=== PATIENT | male | born 1930 | race Caucasian/White ===

== ENCOUNTER → 2018-04-07 | Outpatient (CLI) | payer OTHER ==
[~2018-04-07] MED LIST: ALLO300 PO; ASPI325 PO; ASPI81EC PO; BECL40OI INH; FOLI1 PO; LOSA50 PO; LOVA20 PO; Naproxen250 MG PO; PRED20 PO; ST. JOSEPH ASPI81 MG PO; TELM40 PO; XARELTO PO
[2018-04-07 12:37] LABS: BASOPHILS ABSOLUTE AUTO 0.06 K/mm3 (0.00-0.23); BASOPHILS PERCENT AUTO 2 % (0-2); EOSINOPHILS ABSOLUTE AUTO 0.19 K/mm3 (0.00-0.68); EOSINOPHILS PERCENT AUTO 7 % (0-6); Hematocrit 33.7 % (37.0-53.0); Hemoglobin 11.2 g/dL (13.5-17.5); IMMATURE GRAN PERCENT AUTO 0 % (0-1); LYMPHOCYTES ABSOLUTE AUTO 1.05 K/mm3 (0.84-5.20); LYMPHOCYTES PERCENT AUTO 37 % (21-46); MONOCYTES ABSOLUTE AUTO 0.29 K/mm3 (0.16-1.47); MONOCYTES PERCENT AUTO 10 % (4-13); Mean Corpuscular HGB 31.5 pg (26.0-34.0); Mean Corpuscular HGB Conc 33.2 g/dL (31.5-36.5); Mean Corpuscular Volume 95 fL (80-100); Mean Platelet Volume 10.6 fL (9.1-12.4); NEUTROPHILS ABSOLUTE AUTO 1.23 K/mm3 (1.96-9.15); NEUTROPHILS PERCENT AUTO 44 % (41-73); Platelet Count 165 K/mm3 (150-400); RDW Coefficient Variation 14.6 % (11.7-14.2); RDW Standard Deviation 50.4 fL (35.1-46.3); Red Blood Cell Count 3.56 M/mm3 (4.30-5.90); White Blood Cell Count 2.82 K/mm3 (4.00-11.30)
[2018-04-07 12:51] LABS: Anion Gap 10 mmol/L (6-16); Blood Urea Nitrogen 24 mg/dL (8-24); Bun/Creatinine Ratio 19.2 (12.0-20.0); CO2, Blood 24 mmol/L (21-32); Calcium, Blood 8.8 mg/dL (8.5-10.1); Chloride, Blood 103 mmol/L (98-108); Creatinine, Blood 1.25 mg/dL (0.60-1.20); Glomerular Filtration Rate 55 (60-); Glucose, Blood 131 mg/dL (70-99); Potassium, Blood 4.3 mmol/L (3.5-5.5); Sodium, Blood 137 mmol/L (136-145); Thyroid Stimulating Hormone 2.627 uIU/mL (0.360-4.800)
[2018-04-07 12:53] LABS: Troponin I <0.017 ng/mL (0.000-0.040)
== END | disposition home or self-care (01) ==
LOC: LAB SHORT 12:28 → LAB EV 12:28
PROVIDERS: Physician Assistant Surgical
DX: R07.9 Chest pain, unspecified (principal); R53.83 Other fatigue
CPT/HCPCS: 80048; 84443; 84484; 85025

== ENCOUNTER → 2018-09-05 | Outpatient (CLI) | payer OTHER ==
[2018-09-06 13:49] LABS: Stool Occult Bld Immuno 1 Negative (NEGATIVE)
== END | disposition home or self-care (01) ==
LOC: LAB EV 11:45
PROVIDERS: Physician Assistant Surgical
DX: K92.1 Melena (principal)
CPT/HCPCS: 82274

== ENCOUNTER → 2019-07-31 | Outpatient (CLI) | payer OTHER ==
[2019-07-31 11:37] LABS: BASOPHILS ABSOLUTE AUTO 0.06 K/mm3 (0.00-0.23); BASOPHILS PERCENT AUTO 4 % (0-2); EOSINOPHILS ABSOLUTE AUTO 0.13 K/mm3 (0.00-0.68); EOSINOPHILS PERCENT AUTO 8 % (0-6); Hematocrit 31.4 % (37.0-53.0); Hemoglobin 10.4 g/dL (13.5-17.5); IMMATURE GRAN PERCENT AUTO 0 % (0-1); LYMPHOCYTES ABSOLUTE AUTO 0.64 K/mm3 (0.84-5.20); LYMPHOCYTES PERCENT AUTO 40 % (21-46); MONOCYTES ABSOLUTE AUTO 0.16 K/mm3 (0.16-1.47); MONOCYTES PERCENT AUTO 10 % (4-13); Mean Corpuscular HGB 31.7 pg (26.0-34.0); Mean Corpuscular HGB Conc 33.1 g/dL (31.5-36.5); Mean Corpuscular Volume 96 fL (80-100); Mean Platelet Volume 10.8 fL (9.1-12.4); NEUTROPHILS ABSOLUTE AUTO 0.63 K/mm3 (1.96-9.15); NEUTROPHILS PERCENT AUTO 39 % (41-73); Platelet Count 137 K/mm3 (150-400); RDW Coefficient Variation 13.6 % (11.7-14.2); RDW Standard Deviation 48.1 fL (35.1-46.3); Red Blood Cell Count 3.28 M/mm3 (4.30-5.90); White Blood Cell Count 1.62 K/mm3 (4.00-11.30)
[2019-07-31 11:52] LABS: Albumin, Blood 3.6 g/dL (3.4-5.0); Albumin/Globulin Ratio 1.1 (0.8-1.8); Bilirubin, Total 0.3 mg/dL (0.1-1.0); Calcium, Blood 8.4 mg/dL (8.5-10.1); Creatinine, Blood 1.2 mg/dL (0.60-1.20); Globulin, Blood 3.2 g/dL (2.2-4.0); Potassium, Blood 4.3 mmol/L (3.5-5.5); Total Protein, Blood 6.8 g/dL (6.4-8.2)
== END | disposition home or self-care (01) ==
LOC: LAB SHORT 11:32 → LAB EV 11:32
PROVIDERS: General Practice
DX: R10.13 Epigastric pain (principal)
CPT/HCPCS: 80053; 83690; 85025

== ENCOUNTER 2020-10-12 06:17 | Inpatient (IN) | payer OTHER ==
[~2020-10-12] VITALS: Ht 170.2 cm; Wt 61.0 kg
[~2020-10-12 06:17] MED LIST changes: -XARELTO PO; +XARELTO20 MG PO
[2020-10-12 06:31] LABS: BASOPHILS ABSOLUTE AUTO 0.06 K/mm3 (0.00-0.23); BASOPHILS PERCENT AUTO 1 % (0-2); EOSINOPHILS ABSOLUTE AUTO 0.31 K/mm3 (0.00-0.68); EOSINOPHILS PERCENT AUTO 8 % (0-6); Hematocrit 20.9 % (37.0-53.0); Hemoglobin 6.2 g/dL (13.5-17.5); IMMATURE GRAN PERCENT AUTO 0 % (0-1); LYMPHOCYTES ABSOLUTE AUTO 2.32 K/mm3 (0.84-5.20); LYMPHOCYTES PERCENT AUTO 56 % (21-46); MONOCYTES ABSOLUTE AUTO 0.46 K/mm3 (0.16-1.47); MONOCYTES PERCENT AUTO 11 % (4-13); Mean Corpuscular HGB 29.4 pg (26.0-34.0); Mean Corpuscular HGB Conc 29.7 g/dL (31.5-36.5); Mean Corpuscular Volume 99 fL (80-100); Mean Platelet Volume 11.4 fL (9.1-12.4); NEUTROPHILS PERCENT AUTO 24 % (41-73); Platelet Count 149 K/mm3 (150-400); RDW Coefficient Variation 17.2 % (11.7-14.2); RDW Standard Deviation 61.5 fL (35.1-46.3); Red Blood Cell Count 2.11 M/mm3 (4.30-5.90); White Blood Cell Count 4.15 K/mm3 (4.00-11.30)
[2020-10-12 06:51] LABS: International Normalized Ratio 1.11; Prothrombin Time Results 11.8 Sec (9.7-11.5)
[2020-10-12 06:52] LABS: Albumin, Blood 2.8 g/dL (3.4-5.0); Albumin/Globulin Ratio 1.1 (0.8-1.8); Bilirubin, Total 0.2 mg/dL (0.1-1.0); Calcium, Blood 8.1 mg/dL (8.5-10.1); Creatinine, Blood 1.5 mg/dL (0.60-1.20); Globulin, Blood 2.5 g/dL (2.2-4.0); Potassium, Blood 4.4 mmol/L (3.5-5.5); Total Protein, Blood 5.3 g/dL (6.4-8.2); Troponin I 0.02 ng/mL (0.000-0.040)
[2020-10-12] MEDS ORDERED: LOSA50 PO (07:30)
[2020-10-12] MEDS ORDERED: FOLI1 PO (07:30)
[2020-10-12] MEDS ORDERED: ALLO300 PO (07:30)
--- NOTE | 2020-10-12 15:27 | NUR ---
pt arrived to pcu via gurney from ED. a/ox3, pleasant and cooperative with care, follows commands well, denies pain or complaints, lungs are clear t/o, resp even and unlabored, no cough noted, is on r/a, hrirr, tele in place running afib per monitor, see strip, pronounced murmur noted, no edema noted, ppp+1, cap refill <3sec, vs stable, afebrile, iv site is clear and patent, btx4, abd flat soft nontender, voids without diff, skin c/w/d, maew, daniel, call light in reach.
--- NOTE | 2020-10-12 17:18 | NUR ---
pt is concerned about being incont durring the night, brought him briefs, after talking, offered him a condom cath he wanted that placed, this was done, call light in reach.
--- NOTE | 2020-10-12 18:01 | NUR ---
PT IS DOING WELL, NO COMPLAINTS AT THIS TIME, STATES HE FEELS OK, IS VERY APPREICIATIVE OF HAVING THE CONDOM CATH ON, UNDERSTANDS HE WILL HAVE AN EGD IN THE AM, AND NPO AFTER MIDNIGHT. CALL LIGHT IN REACH.
[2020-10-13 05:28] LABS: BASOPHILS ABSOLUTE AUTO 0.09 K/mm3 (0.00-0.23); BASOPHILS PERCENT AUTO 3 % (0-2); EOSINOPHILS ABSOLUTE AUTO 0.19 K/mm3 (0.00-0.68); EOSINOPHILS PERCENT AUTO 7 % (0-6); Hematocrit 27.4 % (37.0-53.0); Hemoglobin 8.7 g/dL (13.5-17.5); IMMATURE GRAN PERCENT AUTO 0 % (0-1); LYMPHOCYTES ABSOLUTE AUTO 1.24 K/mm3 (0.84-5.20); LYMPHOCYTES PERCENT AUTO 47 % (21-46); MONOCYTES PERCENT AUTO 8 % (4-13); Mean Corpuscular HGB 29.7 pg (26.0-34.0); Mean Corpuscular HGB Conc 31.8 g/dL (31.5-36.5); Mean Corpuscular Volume 94 fL (80-100); Mean Platelet Volume 11.7 fL (9.1-12.4); NEUTROPHILS ABSOLUTE AUTO 0.91 K/mm3 (1.96-9.15); NEUTROPHILS PERCENT AUTO 35 % (41-73); Platelet Count 127 K/mm3 (150-400); RDW Coefficient Variation 16.8 % (11.7-14.2); Red Blood Cell Count 2.93 M/mm3 (4.30-5.90); White Blood Cell Count 2.63 K/mm3 (4.00-11.30)
[2020-10-13 06:03] LABS: Alanine Aminotransfer (ALT/SGP 11 U/L (12-78); Albumin, Blood 2.8 g/dL (3.4-5.0); Albumin/Globulin Ratio 1.2 (0.8-1.8); Alk Phos 57 U/L (50-136); Anion Gap 7 mmol/L (6-16); Aspartate Aminotrans (AST/SGOT 22 U/L (12-37); Bilirubin, Total 0.6 mg/dL (0.1-1.0); Blood Urea Nitrogen 54 mg/dL (8-24); Bun/Creatinine Ratio 50.5 (12.0-20.0); CO2, Blood 20 mmol/L (21-32); Calcium, Blood 8.1 mg/dL (8.5-10.1); Chloride, Blood 119 mmol/L (98-108); Creatinine, Blood 1.07 mg/dL (0.60-1.20); Globulin, Blood 2.4 g/dL (2.2-4.0); Glomerular Filtration Rate >60 (60-); Glucose, Blood 78 mg/dL (70-99); Potassium, Blood 4.1 mmol/L (3.5-5.5); Sodium, Blood 146 mmol/L (136-145); Total Protein, Blood 5.2 g/dL (6.4-8.2)
--- NOTE | 2020-10-13 08:01 | NUR ---
SHIFT SUMMARY PT HAD NO COMPLAINTS OF PAIN OR DISCOMFORT T/O THE NIGHT. BP STABLE 110-100 SYSTOLIC WITH HR IN THE 60'S. PT ON ROOM AIR WITH SATS IN THE HIGH 90'S. TELE MONITOR SHOWED AFIB MOST OF THE NIGHT, CONVERTING TO AFLUTTER AROUND 0300 WITH AN AUDIBLE MURMUR. PT STATED NO EPISODES OF LIGHTHEADEDNESS OR SYNCOPY. PT HAD A CONDOM CATH INPLACE T/O SHIFT. NPO SINCE MIDNIGHT AND ONLY CLEARS BEFORE THAT. PT EAGER FOR PROCEDURE, WILL CONTINUE TO MONITOR UNTIL SHIFT CHANGE.
--- NOTE | 2020-10-13 11:22 | NUR ---
History, Chart, Medications and Allergies reviewed before start of procedure. Patient confirms NPO status and agrees with scheduled surgery. Dr. Young at bedside consulting.
--- NOTE | 2020-10-13 12:02 | NUR ---
DR TAI AT BEDSIDE DISCUSSING RESULTS OF EGD.
--- NOTE | 2020-10-13 12:21 | NUR ---
10/13/20 1221 Kimmy Puentes APC SET AT 20WATTS.
--- NOTE | 2020-10-13 17:45 | NUR ---
SHIFT SUMMARY PT A&Ox3; CALM AND COOPERATIVE WITH CARE. PT RESTING IN BED DURING SHIFT. UP SBA. PT DENIES PAIN, CHEST PAIN, NAUSEA, SOB AND DIZZINESS. PT NPO THIS AM FOR EGD; TO CARDIAC DIET PER ORDERS. CONDOM CATH IN PLACE. VSS. NO OTHER ACUTE CHANGES NOTED DURING SHIFT. WILL CONTINUE TO MONITOR UNTIL REPORT GIVEN TO ONCOMING RN.
--- NOTE | 2020-10-14 05:49 | NUR ---
SHIFT SUMMARY PT WAS QUIET AND PLEASENT T/O THE NIGHT, STATED BEING COMFORTABLE AND WAS ABLE TO SLEEP MOST OF THE NIGHT, DENIED ANY PAIN OR SOB. HAD OCCASIONAL PRODUCTIVE COUGH WITH SMALL AMOUNT OF CLEAR/YELLOW SPUTUM. ON ROOM AIR WITH O2 SATS IN THE HIGH 90'S. BP STABLE LOW 100'S SYSTOLIC. HR 60-80'S WITH TELE SHOWING SINUS RHYTHM. PT HAD QUIET, UNEVENTFUL SHIFT. PT AWAKE WATCHING TV, WILL CONTINUE TO MONITOR UNTIL SHIFT CHANGE.
[2020-10-14 12:34] LABS: BASOPHILS ABSOLUTE AUTO 0.06 K/mm3 (0.00-0.23); BASOPHILS PERCENT AUTO 3 % (0-2); EOSINOPHILS ABSOLUTE AUTO 0.23 K/mm3 (0.00-0.68); EOSINOPHILS PERCENT AUTO 12 % (0-6); Hematocrit 25.9 % (37.0-53.0); Hemoglobin 8.3 g/dL (13.5-17.5); IMMATURE GRAN PERCENT AUTO 0 % (0-1); LYMPHOCYTES ABSOLUTE AUTO 0.71 K/mm3 (0.84-5.20); LYMPHOCYTES PERCENT AUTO 36 % (21-46); MONOCYTES ABSOLUTE AUTO 0.17 K/mm3 (0.16-1.47); MONOCYTES PERCENT AUTO 9 % (4-13); Mean Corpuscular HGB 30.3 pg (26.0-34.0); Mean Corpuscular Volume 95 fL (80-100); Mean Platelet Volume 11.4 fL (9.1-12.4); NEUTROPHILS ABSOLUTE AUTO 0.79 K/mm3 (1.96-9.15); NEUTROPHILS PERCENT AUTO 40 % (41-73); Platelet Count 120 K/mm3 (150-400); RDW Coefficient Variation 16.8 % (11.7-14.2); RDW Standard Deviation 57.3 fL (35.1-46.3); Red Blood Cell Count 2.74 M/mm3 (4.30-5.90); White Blood Cell Count 1.96 K/mm3 (4.00-11.30)
[2020-10-14 12:56] LABS: Alanine Aminotransfer (ALT/SGP 12 U/L (12-78); Albumin, Blood 2.8 g/dL (3.4-5.0); Albumin/Globulin Ratio 1.1 (0.8-1.8); Alk Phos 61 U/L (50-136); Anion Gap 5 mmol/L (6-16); Aspartate Aminotrans (AST/SGOT 17 U/L (12-37); Bilirubin, Total 0.4 mg/dL (0.1-1.0); Blood Urea Nitrogen 27 mg/dL (8-24); CO2, Blood 22 mmol/L (21-32); Calcium, Blood 7.9 mg/dL (8.5-10.1); Chloride, Blood 118 mmol/L (98-108); Globulin, Blood 2.5 g/dL (2.2-4.0); Glomerular Filtration Rate >60 (60-); Glucose, Blood 114 mg/dL (70-99); Sodium, Blood 145 mmol/L (136-145); Total Protein, Blood 5.3 g/dL (6.4-8.2)
[2020-10-14] MEDS ORDERED: PANT40 PO (15:17)
[2020-10-14] MEDS ORDERED: FERSU300 PO (15:20)
--- NOTE | 2020-10-14 19:26 | NUR ---
DISCHARGE SUMMARY PT A&Ox3; CALM AND COOPERATIVE WITH CARE. PT RESTING IN BED DURING SHIFT. UP TO BATHROOM SBA. PT DENIES PAIN, CHEST PAIN, SOB, NASUEA AND DIZZINESS. PT STATES LAST BM DARK "BUT NOT DARK THE LAST ONE; DR BRUCE NOTIFIED. PER TELE PT SINUS RHYTHM WITH ECTOPY AND OCCASIONAL SINUS PAUSES, PT ASSYMPTOMATIC; VSS; NOTIIFED DR BRUCE; NO NEW ORDERS. VSS. NO OTHER ACUTE CHANGES NOTED DURING SHIFT. PRESCRIPTIONS FAXED TO [facility] IN [place] PER PT REQUEST. PT AND DAUGHTER EDUCATED ON DISCHARGE INSTRUCTIONS, FOLLOW UP APPOINTMENTS WITH EFM, MEDICATIONS AND TO TALK SHOW HOST PRESCRIPTIONS TOMORROW FROM [facility]. PT LEFT ROOM VIA WHEELCHAIR AT 1625.
== END 2020-10-14 16:25 | disposition home or self-care (01) | DRG 378 ==
LOC: ER 06:17 → ERHOLD 08:44 → PCU 14:40
PROVIDERS: Emergency Medicine; Student in an Organized Health Care Education/Training Program; ADMIT Internal Medicine
PROC: 0W3P8ZZ Control Bleeding in Gastrointestinal Tract, Via Natural or Artificial Opening Endoscopic (ICD-10-PCS; 2020-10-12)
PROC: 30233N1 Transfusion of Nonautologous Red Blood Cells into Peripheral Vein, Percutaneous Approach (ICD-10-PCS; principal; 2020-10-13 10:00)
DX: K31.811 Angiodysplasia of stomach and duodenum with bleeding (principal); D62 Acute posthemorrhagic anemia; N17.9 Acute kidney failure, unspecified; I48.20 Chronic atrial fibrillation, unspecified; D61.818 Other pancytopenia; Z20.828 Contact with and (suspected) exposure to other viral communicable diseases; I35.0 Nonrheumatic aortic (valve) stenosis; I12.9 Hypertensive chronic kidney disease with stage 1 through stage 4 chronic kidney disease, or unspecified chronic kidney disease; N18.30 Chronic kidney disease, stage 3 unspecified; M10.9 Gout, unspecified; J44.9 Chronic obstructive pulmonary disease, unspecified; D51.9 Vitamin B12 deficiency anemia, unspecified; E78.5 Hyperlipidemia, unspecified; D50.9 Iron deficiency anemia, unspecified; Z66 Do not resuscitate; Z87.891 Personal history of nicotine dependence; Z85.46 Personal history of malignant neoplasm of prostate; Z79.899 Other long term (current) drug therapy; Z79.01 Long term (current) use of anticoagulants; Z79.1 Long term (current) use of non-steroidal anti-inflammatories (NSAID); Z79.82 Long term (current) use of aspirin; Z79.51 Long term (current) use of inhaled steroids
CPT/HCPCS: 36415; 36430; 71045; 80053; 82272; 84484; 85025; 85610; 86850; 86900; 86901; 86923; 93005; 93010; 96361; 96365; 96366; 96376; 99285-25; A9270-GY; C9113; J2704; J7030; J7120; P9016; U0004